=== PATIENT | female | born 1990 | race American Indian/Alaskan Native ===

== ENCOUNTER 2018-01-17 19:45 | Emergency (ER) | payer SELFPAY ==
[2018-01-17 20:13] VITALS: BP 134/88
[2018-01-17 20:32] LABS: Basophils % (Auto) 0.4 % (0.0-1.8); Eosinophils # (Auto) 0.1 K/mm3 (0.0-0.4); Eosinophils % (Auto) 0.6 % (0.0-4.3); Hematocrit 31.1 % (30.3-42.9); Hemoglobin 9.7 gm/dl (10.1-14.3); Lymphocytes # (Auto) 2.4 K/mm3 (1.2-5.4); Lymphocytes % (Auto) 28.9 % (13.4-35.0); Mean Corpuscular HGB Conc 31 % (30-34); Mean Corpuscular Volume 74 fl (79-97); Monocytes # (Auto) 0.5 K/mm3 (0.0-0.8); Monocytes % (Auto) 6.4 % (0.0-7.3); Platelet Count 223 K/mm3 (140-440); Red Blood Count 4.23 M/mm3 (3.65-5.03)
[2018-01-17 20:38] LABS: Mean Corpuscular Hemoglobin 23 pg (28-32); Red Cell Distribution Width 21.9 % (13.2-15.2)
[2018-01-17 21:29] LABS: Bacteria,Urine 2+ /HPF (Negative); Bilirubin,Urine NEG (Negative); Blood,Urine LG (Negative); Calcium Oxalate Crystals,Urine 1+; Color,Urine Red (Yellow); Mucus,Urine FEW /HPF; Urobilinogen,Urine < 2.0 mg/dL (<2.0)
[2018-01-17 21:41] LABS: WBC,Urine > 182.0 /HPF (0.0-6.0)
[2018-01-17] MEDS ORDERED: TORADOL IM ONE (22:37)
[2018-01-17] MEDS ORDERED: MACROBID PO ONE (22:37)
--- NOTE | 2018-01-17 22:39 | Emergency Department Report ---
ED Female HPI - General Chief complaint: Abdominal Pain Stated complaint: ABD PAIN; PAINFUL URINATION Time Seen by Provider: 01/17/18 22:32 Source: patient Mode of arrival: Ambulatory Limitations: No Limitations - History of Present Illness Initial comments: 27-year-old female the past without a history of tubal ligation and tummy tuck presents to the Hospital complains of abdominal pain since this morning. Suprapubic abdominal pain described as intermittent cramping rated 6/10 intensity. No aggravating or alleviating factors reported. Pain radiates to the lower back and bilateral flank. Denies nausea, vomiting, fever. Positive chills, dysuria, and hematuria noted. Denies previous history of kidney stones. - Related Data Previous Rx's Medication Instructions Recorded Last Taken Type Ibuprofen [Motrin] 800 mg PO Q8HR PRN #30 tablet 01/18/18 Unknown Rx Nitrofurantoin Monohyd/M-Cryst 100 mg PO BID #14 capsule 01/18/18 Unknown Rx [Macrobid 100 mg Capsule] Allergies Allergy/AdvReac Type Severity Reaction Status Date / Time No Known Allergies Allergy Verified 01/17/18 20:09 ED Review of Systems ROS: Stated complaint: ABD PAIN; PAINFUL URINATION Other details as noted in HPI Comment: All other systems reviewed and negative ED Past Medical Hx - Past Medical History Previous Medical History?: Yes - Surgical History Past Surgical History?: Yes Additional Surgical History: tubal ligation - Social History Smoking Status: Current Some Day Smoker Substance Use Type: None - Medications Home Medications: Home Medications Medication Instructions Recorded Confirmed Last Taken Type Ibuprofen [Motrin] 800 mg PO Q8HR PRN #30 tablet 01/18/18 Unknown Rx Nitrofurantoin Monohyd/M-Cryst 100 mg PO BID #14 capsule 01/18/18 Unknown Rx [Macrobid 100 mg Capsule] ED Physical Exam - General Limitations: No Limitations - Other Other exam information: General: No limitations, patient is alert in no acute distress Head exam: Atraumatic, normocephalic Eyes exam: Normal appearance ENT: Moist mucous membrane, normal oropharynx Neck exam: Normal inspection, full range of motion, no meningismus nontender Respiratory exam: Clear to auscultation bilateral, no wheezes, rales, crackles Cardiovascular: Normal rate and rhythm, normal heart sounds Abdomen: Soft, nondistended, and nontender, with normal bowel sounds, no rebound, or guarding Extremity: Full range of motion normal inspection no deformity Back: Normal Inspection, full range of motion, no CVA tenderness Neurologic: Alert, oriented x3, cranial nerves intact, no motor or sensory deficit Psychiatric: normal affect, normal mood Skin: Warm, dry, intact ED Course Vital Signs 01/17/18 20:09 Temperature 98 F Pulse Rate 88 Respiratory 16 Rate Blood Pressure 134/88 O2 Sat by Pulse 97 Oximetry - Reevaluation(s) Reevaluation #1: 01/18/18 00:46 Patient received Toradol and Macrobid in the ED ED Medical Decision Making - Lab Data Result diagrams: 01/17/18 20:21 Lab Results 01/17/18 01/17/18 01/17/18 Range/Units 20:21 20:21 20:21 WBC 8.3 (4.5-11.0) K/mm3 RBC 4.23 (3.65-5.03) M/mm3 Hgb 9.7 L (10.1-14.3) gm/dl Hct 31.1 (30.3-42.9) % MCV 74 L (79-97) fl MCH 23 L (28-32) pg MCHC 31 (30-34) % RDW 21.9 H (13.2-15.2) % Plt Count 223 (140-440) K/mm3 Lymph % (Auto) 28.9 (13.4-35.0) % [place] % (Auto) 6.4 (0.0-7.3) % Eos % (Auto) 0.6 (0.0-4.3) % Baso % (Auto) 0.4 (0.0-1.8) % Lymph # 2.4 (1.2-5.4) K/mm3 [place] # 0.5 (0.0-0.8) K/mm3 Eos # 0.1 (0.0-0.4) K/mm3 Baso # 0.0 (0.0-0.1) K/mm3 Seg Neutrophils % 63.7 (40.0-70.0) % Seg Neutrophils # 5.3 (1.8-7.7) K/mm3 HCG, Quant < 2 (0-4) mIU/mL Urine Color (Yellow) Urine Turbidity (Clear) Urine pH (5.0-7.0) Ur Specific [place] (1.003-1.030) Urine Protein (Negative) mg/dL Urine Glucose (UA) (Negative) mg/dL Urine Ketones (Negative) mg/dL Urine Blood (Negative) Urine Nitrite (Negative) Urine Bilirubin (Negative) Urine Urobilinogen (<2.0) mg/dL Ur Leukocyte Esterase (Negative) Urine WBC (Auto) (0.0-6.0) /HPF Urine RBC (Auto) (0.0-6.0) /HPF U Epithel Cells (Auto) (0-13.0) /HPF Urine Bacteria (Auto) (Negative) /HPF Urine WBC Clumps /HPF Calcium Oxalate Crystal Urine Mucus /HPF Blood Type A POSITIVE Antibody Screen Negative 01/17/18 Range/Units 20:33 WBC (4.5-11.0) K/mm3 RBC (3.65-5.03) M/mm3 Hgb (10.1-14.3) gm/dl Hct (30.3-42.9) % MCV (79-97) fl MCH (28-32) pg MCHC (30-34) % RDW (13.2-15.2) % Plt Count (140-440) K/mm3 Lymph % (Auto) (13.4-35.0) % [place] % (Auto) (0.0-7.3) % Eos % (Auto) (0.0-4.3) % Baso % (Auto) (0.0-1.8) % Lymph # (1.2-5.4) K/mm3 [place] # (0.0-0.8) K/mm3 Eos # (0.0-0.4) K/mm3 Baso # (0.0-0.1) K/mm3 Seg Neutrophils % (40.0-70.0) % Seg Neutrophils # (1.8-7.7) K/mm3 HCG, Quant (0-4) mIU/mL Urine Color Red (Yellow) Urine Turbidity Clear (Clear) Urine pH 7.0 (5.0-7.0) Ur Specific [place] 1.005 (1.003-1.030) Urine Protein 30 mg/dl (Negative) mg/dL Urine Glucose (UA) Neg (Negative) mg/dL Urine Ketones Neg (Negative) mg/dL Urine Blood Lg (Negative) Urine Nitrite Neg (Negative) Urine Bilirubin Neg (Negative) Urine Urobilinogen < 2.0 (<2.0) mg/dL Ur Leukocyte Esterase Lg (Negative) Urine WBC (Auto) > 182.0 H (0.0-6.0) /HPF Urine RBC (Auto) 34.0 (0.0-6.0) /HPF U Epithel Cells (Auto) 22.0 H (0-13.0) /HPF Urine Bacteria (Auto) 2+ (Negative) /HPF Urine WBC Clumps 2+ /HPF Calcium Oxalate Crystal 1+ Urine Mucus Few /HPF Blood Type Antibody Screen - Radiology Data Radiology results: report reviewed ct abd pelvis noncontrast IMPRESSION: No genitourinary system calculi or hydronephrosis. No right lower quadrant inflammatory change. Moderate volume formed colonic stool, nonobstructive bowel gas pattern. - Medical Decision Making Positive UTI with hematuria without gross renal abnormality on CT. Will be discharged on antibiotics and pain medications. No signs of pyelonephritis or sepsis - Differential Diagnosis UTI, kidney stones, hemorrhagic cystitis Critical Care Time: No Critical care attestation.: If time is entered above; I have spent that time in minutes in the direct care of this critically ill patient, excluding procedure time. ED Disposition Clinical Impression: UTI (urinary tract infection) Disposition: TO HOME OR SELFCARE Is pt being admited?: No Does the pt Need Aspirin: No Condition: Stable Instructions: Urinary Tract Infection in Women (ED) Additional Instructions: Take the medications as prescribed. Follow-up with your primary care doctor or the doctor provided. Return is symptoms worsen as indicated by your discharge instructions. Prescriptions: Ibuprofen [Motrin] 800 mg PO Q8HR PRN #30 tablet PRN Reason: Pain Nitrofurantoin Monohyd/M-Cryst [Macrobid 100 mg Capsule] 100 mg PO BID #14 capsule Referrals: [facility] [Provider Group] - 3-5 Days (Primary care clinic) ARTURO ACOSTA MD [Staff Physician] - 3-5 Days (Primary care doctor) Time of Disposition: 00:49
--- NOTE | 2018-01-18 00:23 | Cat Scan Report ---
FINAL REPORT EXAM: CT ABDOMEN PELVIS WO CON HISTORY: hematuria, uti, b/l flank pain TECHNIQUE: CT evaluation performed of the abdomen and pelvis without IV or oral contrast administration. Coronal and sagittal imaging also provided for interpretation. PRIORS: None. FINDINGS: The liver, biliary system, pancreas, spleen, adrenal glands, kidneys and bladder are unremarkable without contrast. The pelvic organs are unremarkable. There is no evidence of mass, pathological calcification, or fluid collection noted within the abdomen or pelvis without contrast. Nonobstructive bowel gas pattern. Appendix measures at the upper limits of normal however there is no adjacent inflammatory change. No acute osseous abnormality. Transitional lumbosacral anatomy. IMPRESSION: No genitourinary system calculi or hydronephrosis. No right lower quadrant inflammatory change. Moderate volume formed colonic stool, nonobstructive bowel gas pattern.
== END 2018-01-18 01:37 | disposition home or self-care (01) ==
LOC: ED 19:45
DX: N39.0 Urinary tract infection, site not specified (principal); F17.200 Nicotine dependence, unspecified, uncomplicated
CPT/HCPCS: 36415; 74176; 81001; 84702; 85025; 86850; 86900; 86901; 87076; 87086; 87186; 96372; 99284; J1885